=== PATIENT | male | born 1985 | race Caucasian/White ===

== ENCOUNTER 2017-09-08 17:46 | Emergency (ER) | payer BC, OTHER ==
[~2017-09-08] VITALS: Ht 182.9 cm; Wt 102.4 kg
[~2017-09-08 17:46] MED LIST: ALLDSR/24 PO; CLX20 PO
[2017-09-08 17:59] VITALS: TEMP 37; Ht 182.9 cm; Wt 102.4 kg
[2017-09-08] MEDS ORDERED: SODIUM CHLORIDE 0.9% 1000ML 1,000 ML IV SCH (18:23)
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
--- NOTE | 2017-09-08 18:45 | DIAGNOSTIC IMAGING REPORT ---
CHEST ONE VIEW PORTABLE HISTORY: 31 years-old Male Stroke acute strokelike symptoms COMPARISON: None available TECHNIQUE: Portable AP view of the chest FINDINGS: Cardiomediastinal and hilar silhouettes are within normal limits. There is no pneumothorax, pleural effusion, focal airspace consolidation or overt pulmonary edema. Bones of the chest appear grossly intact. IMPRESSION: No acute process. The above report was generated using voice recognition software. It may contain grammatical, syntax or spelling errors. Electronically signed by: Walt Hills M.D. 09/08/2017 6:44 PM Dictated Date/Time: 09/08/2017 6:43 PM
--- NOTE | 2017-09-08 19:09 | DIAGNOSTIC IMAGING REPORT ---
Brain MRI WITHOUT CONTRAST HISTORY: Pt c/o slurred speech TECHNIQUE: Multiplanar multisequence MRI of the brain was performed without the use of contrast. COMPARISON STUDY: None. FINDINGS: There are no areas of restricted diffusion to suggest acute infarction. The midline structures are intact. The paranasal sinuses are clear. The mastoid air cells are clear. The ventricles and sulci are within normal limits for age. There is no mass, hematoma, midline shift. The major vascular flow-voids at the skull base are well maintained. IMPRESSION: No acute intracranial abnormality. Electronically signed by: Franco Howard M.D. 09/08/2017 7:07 PM Dictated Date/Time: 09/08/2017 7:04 PM
[2017-09-08 19:28] VITALS: O2SAT 98
[2017-09-08] MEDS ORDERED: VNTHFA/IN INH (19:32)
[2017-09-08] MEDS ORDERED: FLUT0.15 NAE (19:32)
[2017-09-08] MEDS ORDERED: CETI10TA84 PO (19:32)
[2017-09-08 19:35] LABS: BASO % 0.1 %; BASO ABS # 0.01 K/uL (0-0.2); EOS % 1.6 %; EOS ABS # 0.14 K/uL (0-0.5); HEMATOCRIT 42.7 % (42-52); HEMOGLOBIN 14.6 g/dL (14.0-18.0); IG# 0.02 K/uL (0.00-0.02); LYMPH % 31.6 %; LYMPH ABS # 2.75 K/uL (1.2-3.4); MEAN CELL VOLUME 88.6 fL (80-100); MEAN CORPUSCULAR HEMOGLOBIN 30.3 pg (25-34); MEAN CORPUSCULAR HGB CONC 34.2 g/dl (32-36); MEAN PLATELET VOLUME 9.1 fL (7.4-10.4); MONO % 8.7 %; MONO ABS # 0.76 K/uL (0.11-0.59); NEUT % 57.8 %; NEUT ABS # 5.03 K/uL (1.4-6.5); PLATELET COUNT 251 K/uL (130-400); RED CELL DISTRIBUTION WIDTH SD 42.2 fL (36.4-46.3); WHITE BLOOD COUNT 8.71 K/uL (4.8-10.8)
[2017-09-08 19:46] LABS: PTT PATIENT 28.5 SECONDS (21.0-31.0)
[2017-09-08 19:59] LABS: BLOOD UREA NITROGEN 15 mg/dl (7-18); CALCIUM 9.3 mg/dl (8.5-10.1); CARBON DIOXIDE 30 mmol/L (21-32); CREATININE 1.05 mg/dl (0.60-1.40); GLUCOSE 90 mg/dl (70-99); SODIUM 138 mmol/L (136-145)
[2017-09-08 20:04] LABS: CKMB 1.1 ng/ml (0.5-3.6)
[2017-09-08 21:01] VITALS: BP 133/87; PULSE 70; O2SAT 93
== END 2017-09-08 21:00 | disposition home or self-care (01) ==
LOC: C.EDB 17:49 → C.EDC 21:00
DX: R47.81 Slurred speech (principal); R42 Dizziness and giddiness

== ENCOUNTER 2017-11-03 19:00 | Emergency (ER) | payer OTHER ==
[~2017-11-03] VITALS: Ht 182.9 cm; Wt 104.4 kg
[~2017-11-03 19:00] MED LIST changes: -ALLDSR/24 PO; +CETI10TA84 PO; -CLX20 PO; +FLUT0.15 NAE; +VNTHFA/IN INH
[2017-11-03 19:05] VITALS: TEMP 36.9; Ht 182.9 cm; Wt 104.4 kg
[2017-11-03] MEDS ORDERED: CYCLOPENTOLATE HCL 1% OP SOLN 2 ML BTL OP STA (20:31)
[2017-11-03] MEDS ORDERED: PrednisoLONE ACET 1% OP SUSP 5 ML BTL OP ONE (20:45)
[2017-11-03] MEDS ORDERED: ERYTHROMYCIN OP OINT 5 MG/GM 3.5 GM TUBE OP ONE (20:45)
[2017-11-03 21:07] VITALS: BP 138/89; PULSE 84; O2SAT 98
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
== END 2017-11-03 21:09 | disposition home or self-care (01) ==
LOC: C.EDB 19:02 → C.EDD 21:09
DX: H20.00 Unspecified acute and subacute iridocyclitis (principal); H57.11 Ocular pain, right eye; W22.8XXA Striking against or struck by other objects, initial encounter